=== PATIENT | female | born 1995 | race Caucasian/White ===

== ENCOUNTER 2017-01-12 07:52 | Emergency (ER) | payer MEDICAID, OTHER ==
[~2017-01-12] VITALS: Ht 167.6 cm; Wt 68.0 kg
[~2017-01-12 07:52] MED LIST: NKM
[2017-01-12] MEDS ORDERED: NKM (08:02)
[2017-01-12] MEDS ORDERED: Bacitracin Oint UD TOPIC ONE (08:30)
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
[2017-01-12] MEDS ORDERED: Hydrogen Peroxide 120ml Bottle TOPIC ONE (08:37)
[2017-01-12 08:58] VITALS: BP 104/71
== END 2017-01-12 09:00 | disposition home or self-care (01) ==
LOC: EDBD 07:52 → EMR 08:20
DX: S81.802A Unspecified open wound, left lower leg, initial encounter (principal); L08.9 Local infection of the skin and subcutaneous tissue, unspecified; X58.XXXA Exposure to other specified factors, initial encounter; Y92.89 Other specified places as the place of occurrence of the external cause; F20.9 Schizophrenia, unspecified; F31.9 Bipolar disorder, unspecified
CPT/HCPCS: 99283